=== PATIENT | male | born 1985 | race Hispanic/Latino ===

== ENCOUNTER → 2024-12-25 14:13 | Outpatient (REF) | payer BC, SELFPAY ==
[2024-12-25 16:20] LABS: Hematocrit 42.4 % (39.0-52.0); Hemoglobin 15.4 g/dL (13.0-18.0); Mean Corp Hgb Conc. 36.3 g/dL (33.0-37.0); Mean Corpuscular Volume 93.2 fL (80.0-94.0); Nucleated Red Blood Cells % 0 % (-); Platelet Count 132 10^3/uL (130-400); Red Cell Dist. Width 12.7 % (11.5-14.5)
[2024-12-25 16:36] LABS: ALT (SGPT) 49 U/L (0-50); AST (SGOT) 87 U/L (17-59); Albumin 4.2 g/dl (3.5-5.0); Alkaline Phosphatase 126 U/L (38-126); Blood Urea Nitrogen 11 mg/dl (9-20); Calcium 10.2 mg/dl (8.4-10.2); Carbon Dioxide 28 mmol/L (22-30); Chloride 108 mmol/L (98-107); Glucose 78 mg/dl (70-99); HDL Cholesterol 55 mg/dl; Iron 125 ug/dl (49-181); LDL Cholesterol, Calculated 72 mg/dl; Potassium 4.7 mmol/L (3.5-5.1); Sodium 141 mmol/L (135-145); Total Protein 7.5 g/dl (6.3-8.2); Very Low Density Lipoprotein 17 mg/dl (0-30); eGFR > 60.00
[2024-12-25 16:46] LABS: Total Iron Binding Capacity 239 ug/dl (261-462)
[2024-12-25 17:06] LABS: TSH 2.27 uIU/ml (0.47-4.68)
[2024-12-25 17:10] LABS: Ferritin 209.0 ng/ml (17.9-464.0)
== END ==
LOC: REG 14:13
PROVIDERS: ATTENDING PHYSICIAN Physician Assistant Medical
DX: K90.0 Celiac disease (principal); D50.9 Iron deficiency anemia, unspecified; I85.00 Esophageal varices without bleeding; Z00.01 Encounter for general adult medical examination with abnormal findings; Z13.1 Encounter for screening for diabetes mellitus; Z13.220 Encounter for screening for lipoid disorders; Z13.0 Encounter for screening for diseases of the blood and blood-forming organs and certain disorders involving the immune mechanism; Z13.29 Encounter for screening for other suspected endocrine disorder
CPT/HCPCS: 36415; 80053; 80061; 82728; 83540; 83550; 84443; 85025